=== PATIENT | male | born 1950 | race Caucasian/White ===

== ENCOUNTER 2018-01-15 11:29 | Outpatient (CLI) | payer MEDICARE, BC ==
[2018-01-15 13:46] LABS: #Eosinphils 0.2 thou/uL (0.0-0.7); #Lymphocytes 2.5 thou/uL (1.20-3.40); #Monocytes 0.9 thou/uL (0.11-0.59); #Neutrophils 5.6 thou/uL (1.40-6.50); %Basophils 0.4 % (0.0-1.0); %Eosinophils 2.3 % (0.0-10.0); %Lymphocytes 26.6 % (21.0-51.0); %Neutrophils 60.7 % (42.0-75.0); Hemoglobin 15.3 g/dL (14.0-18.0); Mean Corpuscular HGB CONC 35.3 g/dL (32.0-36.0); Mean Corpuscular Hemoglobin 33.7 pg (27.0-31.0); Mean Corpuscular Volume 95.4 fL (78.0-98.0); Mean Platelet Volume 7.9 fL (7.4-10.4); Platelet Count 188 thou/uL (130-400); RBC Distribution Width 12.1 % (11.5-14.5); Red Blood Cell (RBC) Count 4.55 mill/uL (4.70-6.10); White Blood Cell (WBC) Count 9.2 thou/uL (4.8-10.8)
[2018-01-15 13:54] LABS: PTT 25.8 SEC (22.9-36.1); Prothrombin Time 13.2 SEC (12.0-14.7)
[2018-01-15 14:01] LABS: Anion Gap 14 mmol/L (10-20); BUN (Urea Nitrogen) 21 mg/dL (8.4-25.7); Calc. Creatinine Clearance 0 mL/min (70-130); Calcium 10.5 mg/dL (7.8-10.44); Carbon Dioxide 25 mmol/L (23-31); Chloride 103 mmol/L (98-107); Estimated GFR-MDRD 78; Glucose 254 mg/dL (80-115); Potassium 4.3 mmol/L (3.5-5.1); Sodium 138 mmol/L (136-145)
== END 2018-01-15 11:30 | disposition home or self-care (01) ==
LOC: LABBT 11:29
PROVIDERS: ATTEND Orthopaedic Surgery
DX: Z01.818 Encounter for other preprocedural examination (principal); M16.0 Bilateral primary osteoarthritis of hip
CPT/HCPCS: 80048; 85025; 85610; 85730; 87081; 93005; 93010

== ENCOUNTER 2018-01-15 12:30 | Inpatient (IN) | payer MEDICARE, BC ==
--- NOTE | 2018-01-31 18:41 | HP ---
DATE OF ADMISSION: 02/04/2018 HISTORY OF PRESENT ILLNESS: The patient is a 67-year-old male with a greater than 1 year history of progressive degenerative arthritis of the right hip, unresponsive to conservative treatment. There has been no injury. He has had progressive pain, which is significantly limiting his lifestyle, including walking, getting dressed, and sleeping. He currently states his life is not worth living the way it is now. PAST MEDICAL HISTORY: The patient has multiple other medical problems including diabetes, coronary artery disease, status post CABG, hypertension, hyperlipidemia, asthma. CURRENT MEDICATIONS: Includes lisinopril, Lipitor, Plavix, which he stopped 1 week preoperatively, aspirin 81 mg, atenolol, Symbicort, Ventolin, multivitamins , Tylenol. ALLERGIES: He is allergic to BACTRIM. On preoperative testing, he was found to have positive MRSA screen and has been treated with Hibiclens showers and baths and Bactroban nasal ointment. FAMILY HISTORY: Otherwise, unremarkable. SOCIAL HISTORY: Otherwise, unremarkable. REVIEW OF SYSTEMS: Otherwise, unremarkable. PHYSICAL EXAMINATION: GENERAL: Reveals an elderly healthy heavyset male. HEENT: Unremarkable. NECK: Supple. CHEST: Clear. HEART: Regular rate and rhythm. ABDOMEN: Soft, nontender. RECTAL/GENITAL: Exams are deferred. EXTREMITIES: Pertinent findings to the right hip. There is tenderness anteriorly, posteriorly and over the greater trochanter. There is a right antalgic gait. There is decreased range of motion of the right hip and groin pain with internal rotation. Leg lengths appear to be equal. Neurovascular exam is intact. I cannot palpate his distal pulses. There is good capillary refill. X-RAY FINDINGS: X-rays reveal severe DJD of both hips, right slightly greater than left. IMPRESSION: 1. Degenerative joint disease of both hips, right symptomatic more than left. 2. Diabetes. 3. Atherosclerotic cardiovascular disease status post coronary artery bypass graft. 4. History of hypertension. 5. Positive methicillin-resistant Staphylococcus aureus screen. PLAN: Right total hip replacement. 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 Elio Mccurdy. The nature of the surgery, length of recovery, and potential complications such as infection, loss of motion, incomplete relief, thromboembolic phenomenon, leg length discrepancy, possible transfusion, and need for revision have been discussed in detail. The patient's other medical conditions put him at high risk for potential complications, but he states at this point in time he will do anything to get rid of his pain.He states his life is not worth living in his present state of pain. JOSHUA
[2018-02-04] MEDS ORDERED: CEFAZOLIN 3 GM in Sodium Chloride 0.9% 100 ML IVPB SCH (06:00)
[2018-02-04] MEDS ORDERED: Sodium Chloride 0.9% 100 ML ONE (06:10)
[2018-02-04] MEDS ORDERED: Fentanyl 100 MCG/2 ML VIAL ONE ×6 (06:33→10:32)
[2018-02-04] MEDS ORDERED: Midazolam HCl 2 mg/2 ml Vial ONE (06:33)
[2018-02-04] MEDS ORDERED: Naloxone HCl 0.4 mg/ml Vial IV PRN ×2 (07:09→09:50)
[2018-02-04] MEDS ORDERED: Ondansetron HCl/PF 4 MG/2 ML Vial IVP PRN ×4 (07:09→12:19)
[2018-02-04] MEDS ORDERED: fentaNYL Citrate/PF 2,000 MCG in Sodium Chloride 0.9% 60 ML IV PRN ×2 (07:09→09:50)
[2018-02-04] MEDS ORDERED: Zolpidem Tartrate 5 MG TAB PO PRN ×3 (07:09→12:19)
[2018-02-04] MEDS ORDERED: diphenhydrAMINE 50 MG/ML VIAL IM/IV PRN (07:09)
[2018-02-04] MEDS ORDERED: Ketorolac Tromethamine 30 MG/ML VIAL IVP PRN (07:09)
[2018-02-04] MEDS ORDERED: diphenhydrAMINE 25 MG CAP PO PRN ×3 (07:09→12:19)
[2018-02-04] MEDS ORDERED: Promethazine HCl 25 MG/ML VIAL IM PRN ×3 (07:09→09:50)
[2018-02-04] MEDS ORDERED: ADMIXTURE FEE CHEMO IVPB SCH (07:15)
[2018-02-04] MEDS ORDERED: CEFAZOLIN IVPB SCH (07:15)
[2018-02-04] MEDS ORDERED: SODIUM CHLORIDE 0.9% IVPB SCH (07:15)
[2018-02-04 07:22] LABS: Bilirubin Negative (Negative); Blood, Urine Negative (Negative); Clarity CLEAR (Clear); Glucose, Urine (Dipstick) Negative (Negative); Leukocyte Negative (Negative); Nitrite Negative (Negative); Protein, Urine (Dipstick) Negative (Neg-Trace); Specific Gravity, Urine 1.013 (1.002-1.036); Urobilinogen 0.2 mg/dL (0.2-1.0); pH, Urine 5.5 (5.0-9.0)
[2018-02-04 07:24] LABS: Bacteria/HPF None Seen HPF (None Seen); Hyaline Casts/LPF 0-3 HYALINE CAST LPF (0-3 Hyaline); RBC/HPF 0-3 HPF (0-3); Squamous Epithelial None Seen HPF (0-3); WBC/HPF None Seen HPF (0-3)
[2018-02-04] MEDS ORDERED: Sodium Chloride 0.9% 10 ML ONE (08:46)
[2018-02-04] MEDS ORDERED: Ondansetron HCl/PF 4 MG/2 ML Vial ONE (09:16)
[2018-02-04] MEDS ORDERED: Ketorolac Tromethamine 30 MG/ML VIAL ONE (09:16)
[2018-02-04] MEDS ORDERED: Glycopyrrolate 0.2 MG/ML 5 ML SYRINGE ONE (09:16)
[2018-02-04] MEDS ORDERED: Succinylcholine Chloride 20 MG/ML 10 ml SYRINGE FS ONE (09:16)
[2018-02-04] MEDS ORDERED: PHENYLEPHRINE-NS 100 MCG/ML 10 ML SYRINGE ONE (09:16)
[2018-02-04] MEDS ORDERED: Lidocaine 1% PF 5 ML VIAL ONE (09:16)
[2018-02-04] MEDS ORDERED: PROPOFOL 200 MG/20 ML VIAL ONE (09:16)
[2018-02-04] MEDS ORDERED: Dexamethasone 20 MG/5 ML VIAL ONE (09:16)
[2018-02-04] MEDS ORDERED: Tranexamic Acid 1,000 MG in Sodium Chloride 0.9% 100 ML IVPB SCH ×2 (09:45→12:19)
[2018-02-04] MEDS ORDERED: Promethazine HCl 25 MG/ML VIAL SLOW IVP PRN ×2 (09:49→12:19)
[2018-02-04] MEDS ORDERED: diphenhydrAMINE 50 MG/ML VIAL IM PRN (09:50)
[2018-02-04] MEDS ORDERED: diphenhydrAMINE 50 MG/ML VIAL IVP PRN (09:50)
--- NOTE | 2018-02-04 09:50 | OP ---
DATE OF PROCEDURE: 02/04/2018 PREOPERATIVE DIAGNOSIS: End-stage bicompartmental osteoarthritis, right hip. POSTOPERATIVE DIAGNOSIS: End-stage bicompartmental osteoarthritis, right hip. OPERATIVE PROCEDURE: Press-Fit right total hip arthroplasty. SURGEON: Kulwant Harden M.D. LEAD CARPENTER: Kevin Chawla PA-C. ANESTHESIA: General via endotracheal. COMPONENTS USED: [facility] size 5.5 Accolade Press-Fit hip stem with a Trident PSL 58 mm c luster acetabular Press Fit shell, a neutral offset metallic femoral head, 40 mm with a 0 degree poly ethylene fixed bearing insert. ESTIMATED BLOOD LOSS: 400 mL. URINE OUTPUT: None. INPUT: 1500 mL of crystalloid. DRAINS: None. SPECIMENS: None. COMPLICATIONS: None. COUNTS: Correct. INDICATIONS FOR SURGERY: Tadeo is a 67-year-old white male who has had progressive right hip, groi n and thigh pain amplified with standing and walking for the last 10-12 years. He has failed conserv ative management and elected to proceed with total hip arthroplasty as definitive treatment of his pa in. PROCEDURE IN DETAIL: After informed consent was obtained in the preoperative holding area, the patie nt was taken to the operative suite where general anesthesia was induced. The patient was then posit ioned in the lateral decubitus position. The hip was then prepped and draped in usual sterile fashio n. The patient received preoperative antibiotics. Prior to incision, time-out was called and all me mbers of the surgical team agreed upon site, surgeon, and patient. After this, a longitudinal incisi on was made directly over the trochanter, noted by palpation extending 2 fingerbreadths above and bel ow the trochanter. The deeper subcutaneous layer was undermined with Bovie electrocautery. The ilio tibial band was encountered and incised sharply and the plane below this was developed bluntly. [facility] was placed to hold this opened. The lateral aspect of the trochanter and the abduct or muscles were encountered and then reflected anteriorly off the trochanter using Bovie electrocaute ry. Once this was completed, the anterior capsule was then encountered and identified and copious ca psulotomy was carried out, exposing the femoral neck and head. Dislocation maneuver was then performe d and an in situ provisional neck cut was then made using the oscillating saw. Attention was then tu rned to acetabular preparation and sequential reaming was carried out up to the appropriate diameter and a trial was then malleted into place with good firm resistance and no pullout. The permanent viri tabular shell was then malleted squarely into place, as was the appropriate liner. Once completed, t he wound was copiously irrigated and attention was then turned to femoral preparation. Flexion and ex ternal rotation was performed of the exposed thigh and femoral elevators were then placed at the prox imal aspect of the wound. Canal finder was used to establish the length of the canal and sequential reaming was carried out, followed by broaching. Once the appropriate stability was established with the trial broaches with both flexion, extension and rotational stability, we did trial with neutral a nd 2 mm offset incremental necks. Once the appropriate size was decided upon, with good stability no ling with flexion, extension, internal and external rotation and shuck being negative, we removed the femoral trial broach and malletted into place the permanent prosthesis with good firm fit, which was also stable to rotation. Again, the hip felt very stable to flexion, extension, internal and externa l rotation. Leg lengths appeared near anatomic clinically and we were quite happy with prosthesis pl acement. Copious irrigation was then carried out through the entirety of the wound. Primary closure of the abductors was accomplished with interrupted #2 Vicryl [id number] stitches and the IT ban d was then closed with interrupted #2 Vicryl, oversewn with a #2 running barbed Quill stitch. Subcut aneous fascia was closed with running barbed Quill stitch and a subcuticular Monocryl barbed Quill st itch was used for skin closure and augmented with skin cement. A sterile dressing was applied. The p rocedure was terminated without any complication. All counts were correct. The patient was awakened in the operative suite and taken to the recovery room in stable condition.
[2018-02-04] MEDS ORDERED: Communication Order-Pharmacy FS SCH (10:00)
--- NOTE | 2018-02-04 10:54 | RAD ---
TWP VIEWS RIGHT HIP: Date: 02-04-18 History: Post op total hip replacement. FINDINGS: There are post-surgical changes related to right total hip prosthesis. No fracture or dislocation is seen. Subcutaneous emphysema is seen about the hip. IMPRESSION: Post-surgical changes related to recent right total hip replacement. POS: [facility]
[2018-02-04] MEDS ORDERED: Promethazine HCl 25 MG/ML VIAL ONE (11:09)
[2018-02-04] MEDS: Sodium Chloride 0.9% 1,000 ML IV SCH ×2 (12:02→21:05)
[2018-02-04] MEDS ORDERED: Acetaminophen 325 MG TAB PO PRN (12:19)
[2018-02-04] MEDS ORDERED: Cetirizine HCl 10 MG TAB PO SCH (12:19)
[2018-02-04] MEDS ORDERED: traMADol HCl 50 MG TAB PO PRN (12:19)
[2018-02-04] MEDS ORDERED: PROVENTIL INHALER 6.7 G (200 INHALATIONS) INH PRN (12:19)
[2018-02-04] MEDS ORDERED: Fentanyl 100 MCG/2 ML VIAL SLOW IVP PRN ×2 (12:19)
[2018-02-04] MEDS ORDERED: CEFAZOLIN/Water 2 GM/20 ML SYRINGE SLOW IVP SCH (12:19)
[2018-02-04] MEDS ORDERED: HYDROcodone/Acetaminophen 10/325 mg Tablet PO PRN ×2 (12:19)
[2018-02-04] MEDS ORDERED: UBIDECARENONE PO SCH (12:19)
[2018-02-04] MEDS ORDERED: Aspirin 325 MG TAB PO SCH ×2 (12:19→13:15)
[2018-02-04 13:00] VITALS: BMI 42.0
[2018-02-04] MEDS ORDERED: Lisinopril 10 MG TAB PO SCH (13:15)
[2018-02-04] MEDS ORDERED: Ferrous Gluconate 324 MG TAB PO SCH (13:15)
[2018-02-04] MEDS ORDERED: Multivitamin W/ Minerals 1 TAB PO SCH (13:15)
[2018-02-04] MEDS ORDERED: Senokot S 8.6-50 MG TAB PO SCH (13:15)
[2018-02-04] MEDS ORDERED: Loratadine 10 MG TAB PO SCH (13:15)
[2018-02-04] MEDS ORDERED: Ubidecarenone 50 MG CAP PO SCH (13:30)
[2018-02-04] MEDS ORDERED: HumaLOG 300 UNITS/3 ML VIAL SC PRN (13:54)
[2018-02-04] MEDS ORDERED: Dextrose 5% in Water 1,000 ML IV PRN (13:54)
[2018-02-04] MEDS ORDERED: Dextrose 50% Abboject 50 ML SYRINGE SLOW IVP PRN (13:54)
[2018-02-04] MEDS ORDERED: hydrALAZINE 20 MG/ML VIAL SLOW IVP PRN (13:55)
[2018-02-04] MEDS: Ketorolac Tromethamine 30 MG/ML VIAL IVP SCH ×2 (14:47→21:12)
[2018-02-04] MEDS: CEFAZOLIN IVPB SCH (15:01)
[2018-02-04] MEDS: SODIUM CHLORIDE 0.9% IVPB SCH (15:01)
[2018-02-04] MEDS: ADMIXTURE FEE CHEMO IVPB SCH (15:01)
[2018-02-04] MEDS: Fish Oil 1,000 MG CAP PO SCH ×2 (15:02→21:09)
[2018-02-04] MEDS: Insulin NPH/Reg Insulin Hm 300 UNITS/3 ML VIAL SC SCH ×2 (15:19→22:00)
--- NOTE | 2018-02-04 17:21 | PDOC.PN ---
- Subjective Encounter Start Date: 02/04/18 Encounter Start Time: 17:20 Pt seen for management of medical comorbidities including diabetes mellitus. Denies chest pain, shortness of breath, fevers or chills. - Objective MAR Reviewed: Yes Vital Signs & Weight: Vital Signs (12 hours) Temp Pulse Resp BP Pulse Ox 02/04/18 12:30 97.8 F 71 18 104/64 98 02/04/18 08:00 97.8 F 71 18 Weight Weight 345 lb Additional Labs: Accuchecks 02/04/18 15:16 POC Glucose 297 H Labs reviewed by me Phys Exam - Physical Examination Constitutional: NAD HEENT: moist MMs Neck: supple Respiratory: clear to auscultation bilateral Cardiovascular: RRR Gastrointestinal: soft s/p R hip surgery Neurological: moves all 4 limbs Psychiatric: normal affect Dx/Plan (1) DM2 (diabetes mellitus, type 2) Status: Chronic Comment: start accuchecks, insulin sliding scale (2) HTN (hypertension) Code(s): I10 - ESSENTIAL (PRIMARY) HYPERTENSION Status: Chronic Comment: controlled. Add PRN IV hydralazine for blood pressure spikes. (3) CAD (coronary artery disease) Code(s): I25.10 - ATHSCL HEART DISEASE OF [place] CORONARY ARTERY W/O ANG PCTRS Status: Chronic Comment: stable (4) Dyslipidemia Code(s): E78.5 - HYPERLIPIDEMIA, UNSPECIFIED Status: Chronic Comment: continue statin - Plan * . Review of Systems - Medications/Allergies Allergies/Adverse Reactions: Allergies Allergy/AdvReac Type Severity Reaction Status Date / Time Sulfa (Sulfonamide Allergy "been told Verified 06/01/16 09:13 Antibiotics) that since i was a child" Medications: Current Medications Acetaminophen (Tylenol) 650 mg PO Q4H PRN PRN Reason: REIS/ T > 101F; Mild Pain (1-3) Albuterol Sulfate (Proventil Hfa) 2 puff INH PRN PRN PRN Reason: Dyspnea/Wheezing/SOB Aspirin (Aspirin) 325 mg PO BID [facility] Atorvastatin Calcium (Lipitor) 80 mg PO HS [facility] Cholecalciferol (Vitamin D3) 10,000 units PO DAILY [facility] Coenzyme Q10 (Coenzyme Q10) 100 mg PO DAILY [facility] Dextrose/Water (Dextrose 50%) 25 gm SLOW IVP PRN PRN PRN Reason: Hypoglycemia Diphenhydramine HCl (Benadryl) 25 mg IVP Q3H PRN PRN Reason: Itching Diphenhydramine HCl (Benadryl) 25 mg IM Q3H PRN PRN Reason: Itching Diphenhydramine HCl (Benadryl) 25 mg PO Q6H PRN PRN Reason: Itching Ferrous Gluconate (Fergon) 324 mg PO BID [facility] Fish Oil (Fish Oil) 1,000 mg PO TID [facility] Last Admin: 02/04/18 15:02 Dose: Not Given Glucagon (Glucagon) 1 mg IM PRN PRN PRN Reason: Hypoglycemia Hydralazine HCl (Apresoline) 10 mg SLOW IVP Q6H PRN PRN Reason: SBP Greater Than 170 Fentanyl Citrate 2,000 mcg/ (Sodium Chloride) 100 mls @ 0 mls/hr IV INF PRN; As Directed PRN Reason: Pain Sodium Chloride (Normal Saline 0.9%) 1,000 mls @ 100 mls/hr IV .Q10H [facility] Last Admin: 02/04/18 12:02 Dose: Not Given Vancomycin HCl 2 gm/ Sodium (Chloride) 500 mls @ 250 mls/hr IVPB 2100 [facility] Stop: 02/04/18 22:59 Cefazolin Sodium 3 gm/Miscellaneous Medication 1 units/ Sodium Chloride 100 mls @ 200 mls/hr IVPB Q8H [facility] Stop: 02/04/18 23:29 Last Admin: 02/04/18 15:01 Dose: 100 mls Dextrose/Water (D5w) 1,000 mls @ 0 mls/hr IV .Q0M PRN; As Directed PRN Reason: Hypoglycemia Insulin Human Isoph/Insulin Regular (Humulin 70/30) 0 units SC TID [facility] Last Admin: 02/04/18 15:19 Dose: 66 unit Insulin Human Lispro (Humalog) 0 units SC .MILD SLIDING SCALE PRN PRN Reason: Mild Correctional Scale Iron/Minerals/Multivitamins (Theragran M) 1 tab PO DAILY [facility] Ketorolac Tromethamine (Toradol) 15 mg IVP Q6H PRN PRN Reason: Moderate Pain 4-6 Stop: 02/07/18 07:10 Ketorolac Tromethamine (Toradol) 15 mg IVP Q8HR [facility] Stop: 02/06/18 14:01 Last Admin: 02/04/18 14:47 Dose: 15 mg Lisinopril (Zestril) 5 mg PO QAM [facility] Loratadine (Claritin) 10 mg PO DAILY [facility] Metoprolol Succinate (Toprol Xl) 25 mg PO DAILY [facility] Miscellaneous Information (Communication Order-Pharmacy) 1 each FS ONE [facility] Stop: 02/04/18 22:00 Naloxone HCl (Narcan) 0.2 mg IV Q5MIN PRN PRN Reason: Opiate Reversal Ondansetron HCl (Zofran) 4 mg IVP Q6H PRN PRN Reason: Nausea/Vomiting Promethazine HCl (Phenergan) 12.5 mg SLOW IVP Q4H PRN PRN Reason: Nausea/Vomiting Senna/Docusate Sodium (Senokot S) 2 tab PO BID [facility] Sodium Chloride (Flush - Normal Saline) 10 ml IVF PRN PRN PRN Reason: Saline Flush Zolpidem Tartrate (Ambien) 5 mg PO HSPRN PRN PRN Reason: Insomnia
[2018-02-04] MEDS: Aspirin 325 MG TAB PO SCH (21:10)
[2018-02-04] MEDS: Senokot S 8.6-50 MG TAB PO SCH (21:10)
[2018-02-04] MEDS: Ferrous Gluconate 324 MG TAB PO SCH (21:11)
[2018-02-04] MEDS: Atorvastatin Calcium 40 MG TAB PO SCH (21:11)
[2018-02-05] MEDS: CEFAZOLIN IVPB SCH (00:13)
[2018-02-05] MEDS: SODIUM CHLORIDE 0.9% IVPB SCH (00:13)
[2018-02-05] MEDS: ADMIXTURE FEE CHEMO IVPB SCH (00:13)
[2018-02-05] MEDS ORDERED: fentaNYL Citrate/PF 2,000 MCG in Sodium Chloride 0.9% 60 ML IV PRN (00:50)
[2018-02-05] MEDS ORDERED: Ketorolac Tromethamine 30 MG/ML VIAL IVP PRN (00:53)
[2018-02-05] MEDS: Ketorolac Tromethamine 30 MG/ML VIAL IVP SCH ×3 (05:18→21:06)
[2018-02-05 05:49] LABS: Hemoglobin 12.5 g/dL (14.0-18.0); Mean Corpuscular HGB CONC 34.2 g/dL (32.0-36.0); Mean Corpuscular Volume 96.6 fL (78.0-98.0); Mean Platelet Volume 7.7 fL (7.4-10.4); Platelet Count 166 thou/uL (130-400); RBC Distribution Width 12.3 % (11.5-14.5); Red Blood Cell (RBC) Count 3.79 mill/uL (4.70-6.10); White Blood Cell (WBC) Count 18.3 thou/uL (4.8-10.8)
[2018-02-05] MEDS: Sodium Chloride 0.9% 1,000 ML IV SCH ×2 (07:22→18:10)
[2018-02-05] MEDS: Ubidecarenone 50 MG CAP PO SCH (08:13)
[2018-02-05] MEDS: Aspirin 325 MG TAB PO SCH ×2 (08:13→21:08)
[2018-02-05] MEDS: Fish Oil 1,000 MG CAP PO SCH ×3 (08:13→21:10)
[2018-02-05] MEDS: Senokot S 8.6-50 MG TAB PO SCH ×2 (08:14→21:09)
[2018-02-05] MEDS: Ferrous Gluconate 324 MG TAB PO SCH ×2 (08:15→21:09)
[2018-02-05] MEDS: Lisinopril 10 MG TAB PO SCH (08:15)
[2018-02-05] MEDS: Loratadine 10 MG TAB PO SCH (08:15)
[2018-02-05] MEDS: Insulin NPH/Reg Insulin Hm 300 UNITS/3 ML VIAL SC SCH ×3 (08:19→21:11)
[2018-02-05] MEDS: Multivitamin W/ Minerals 1 TAB PO SCH (08:28)
--- NOTE | 2018-02-05 13:58 | PDOC.PN ---
- Subjective Encounter Start Date: 02/05/18 Encounter Start Time: 09:00 Pt seen for followup re: dm2. Denies chest pain, shortness of breath, fevers or chills. No nausea or vomiting. - Objective MAR Reviewed: Yes Vital Signs & Weight: Vital Signs (12 hours) Temp Pulse Resp BP Pulse Ox 02/05/18 07:09 98.4 F 91 18 02/05/18 03:24 98.4 F 91 18 115/68 94 L Weight Admit Weight 345 lb Weight 345 lb I&O: 02/04/18 02/05/18 02/06/18 06:59 06:59 06:59 Intake Total 2480 Output Total 0 Balance 2480 Result Diagrams: 02/05/18 04:52 Additional Labs: Accuchecks 02/05/18 02/05/18 02/04/18 11:51 06:06 21:36 POC Glucose 208 H 202 H 245 H 02/04/18 02/04/18 15:16 06:27 POC Glucose 297 H 186 H labs reviewed by me Phys Exam - Physical Examination Morbid obesity HEENT: moist MMs Neck: supple Respiratory: clear to auscultation bilateral Cardiovascular: RRR Gastrointestinal: soft s/p R hip surgery Neurological: moves all 4 limbs Psychiatric: normal affect Dx/Plan (1) DM2 (diabetes mellitus, type 2) Status: Chronic Comment: blood sugars high, change to moderate insulin sliding scale (2) HTN (hypertension) Code(s): I10 - ESSENTIAL (PRIMARY) HYPERTENSION Status: Chronic Comment: controlled. (3) CAD (coronary artery disease) Code(s): I25.10 - ATHSCL HEART DISEASE OF [place] CORONARY ARTERY W/O ANG PCTRS Status: Chronic Comment: stable (4) Dyslipidemia Code(s): E78.5 - HYPERLIPIDEMIA, UNSPECIFIED Status: Chronic Comment: on statin - Plan * . Review of Systems - Review of Systems Respiratory: negative: Cough, Shortness of Breath, SOB with Excertion, Pleuritic Pain, Wheezing Cardiovascular: negative: chest pain, palpitations, orthopnea, paroxysmal nocturnal dyspnea, edema, light headedness - Medications/Allergies Allergies/Adverse Reactions: Allergies Allergy/AdvReac Type Severity Reaction Status Date / Time Sulfa (Sulfonamide Allergy "been told Verified 06/01/16 09:13 Antibiotics) that since i was a child" Medications: Current Medications Acetaminophen (Tylenol) 650 mg PO Q4H PRN PRN Reason: REIS/ T > 101F; Mild Pain (1-3) Albuterol Sulfate (Proventil Hfa) 2 puff INH PRN PRN PRN Reason: Dyspnea/Wheezing/SOB Aspirin (Aspirin) 325 mg PO BID [facility] Last Admin: 02/05/18 08:13 Dose: 325 mg Atorvastatin Calcium (Lipitor) 80 mg PO HS [facility] Last Admin: 02/04/18 21:11 Dose: 80 mg Cholecalciferol (Vitamin D3) 10,000 units PO DAILY [facility] Last Admin: 02/05/18 08:14 Dose: 10,000 units Coenzyme Q10 (Coenzyme Q10) 100 mg PO DAILY [facility] Last Admin: 02/05/18 08:13 Dose: 100 mg Dextrose/Water (Dextrose 50%) 25 gm SLOW IVP PRN PRN PRN Reason: Hypoglycemia Diphenhydramine HCl (Benadryl) 25 mg IVP Q3H PRN PRN Reason: Itching Diphenhydramine HCl (Benadryl) 25 mg IM Q3H PRN PRN Reason: Itching Diphenhydramine HCl (Benadryl) 25 mg PO Q6H PRN PRN Reason: Itching Ferrous Gluconate (Fergon) 324 mg PO BID [facility] Last Admin: 02/05/18 08:15 Dose: 324 mg Fish Oil (Fish Oil) 1,000 mg PO TID [facility] Last Admin: 02/05/18 08:13 Dose: 1,000 mg Glucagon (Glucagon) 1 mg IM PRN PRN PRN Reason: Hypoglycemia Hydralazine HCl (Apresoline) 10 mg SLOW IVP Q6H PRN PRN Reason: SBP Greater Than 170 Sodium Chloride (Normal Saline 0.9%) 1,000 mls @ 100 mls/hr IV .Q10H [facility] Last Admin: 02/05/18 07:22 Dose: Not Given Dextrose/Water (D5w) 1,000 mls @ 0 mls/hr IV .Q0M PRN; As Directed PRN Reason: Hypoglycemia Fentanyl Citrate 2,000 mcg/ (Sodium Chloride) 100 mls @ 0 mls/hr IV INF PRN; As Directed PRN Reason: Pain Insulin Human Isoph/Insulin Regular (Humulin 70/30) 0 units SC TID [facility] Last Admin: 02/05/18 08:19 Dose: 66 unit Insulin Human Lispro (Humalog) 0 units SC .MILD SLIDING SCALE PRN PRN Reason: Mild Correctional Scale Iron/Minerals/Multivitamins (Theragran M) 1 tab PO DAILY [facility] Last Admin: 02/05/18 08:28 Dose: 1 tab Ketorolac Tromethamine (Toradol) 15 mg IVP Q6H PRN PRN Reason: Moderate Pain 4-6 Stop: 02/07/18 07:10 Ketorolac Tromethamine (Toradol) 15 mg IVP Q8HR [facility] Stop: 02/06/18 14:01 Last Admin: 02/05/18 05:18 Dose: 15 mg Lisinopril (Zestril) 5 mg PO QAM [facility] Last Admin: 02/05/18 08:15 Dose: 5 mg Loratadine (Claritin) 10 mg PO DAILY [facility] Last Admin: 02/05/18 08:15 Dose: 10 mg Metoprolol Succinate (Toprol Xl) 25 mg PO DAILY [facility] Last Admin: 02/05/18 08:15 Dose: 25 mg Naloxone HCl (Narcan) 0.2 mg IV Q5MIN PRN PRN Reason: Opiate Reversal Ondansetron HCl (Zofran) 4 mg IVP Q6H PRN PRN Reason: Nausea/Vomiting Promethazine HCl (Phenergan) 12.5 mg SLOW IVP Q4H PRN PRN Reason: Nausea/Vomiting Senna/Docusate Sodium (Senokot S) 2 tab PO BID [facility] Last Admin: 02/05/18 08:14 Dose: 2 tab Sodium Chloride (Flush - Normal Saline) 10 ml IVF PRN PRN PRN Reason: Saline Flush Zolpidem Tartrate (Ambien) 5 mg PO HSPRN PRN PRN Reason: Insomnia
[2018-02-05] MEDS ORDERED: HumaLOG 300 UNITS/3 ML VIAL SC PRN (14:02)
[2018-02-05] MEDS: HumaLOG 300 UNITS/3 ML VIAL SC PRN (18:15)
[2018-02-05] MEDS: Atorvastatin Calcium 40 MG TAB PO SCH (21:09)
[2018-02-06] MEDS: Sodium Chloride 0.9% 1,000 ML IV SCH ×2 (05:32→15:32)
[2018-02-06] MEDS: Ketorolac Tromethamine 30 MG/ML VIAL IVP SCH ×2 (06:10→14:43)
[2018-02-06] MEDS: Lisinopril 10 MG TAB PO SCH (08:29)
[2018-02-06] MEDS: Multivitamin W/ Minerals 1 TAB PO SCH (08:29)
[2018-02-06] MEDS: Fish Oil 1,000 MG CAP PO SCH ×2 (08:29→14:43)
[2018-02-06] MEDS: Ferrous Gluconate 324 MG TAB PO SCH (08:29)
[2018-02-06] MEDS: Ubidecarenone 50 MG CAP PO SCH (08:29)
[2018-02-06] MEDS: Aspirin 325 MG TAB PO SCH (08:29)
[2018-02-06] MEDS: Loratadine 10 MG TAB PO SCH (08:29)
[2018-02-06] MEDS: Senokot S 8.6-50 MG TAB PO SCH (08:30)
[2018-02-06] MEDS: Insulin NPH/Reg Insulin Hm 300 UNITS/3 ML VIAL SC SCH ×2 (10:30→14:43)
[2018-02-06] MEDS: HumaLOG 300 UNITS/3 ML VIAL SC PRN (11:44)
--- NOTE | 2018-02-06 15:49 | PDOC.PN ---
- Subjective Encounter Start Date: 02/06/18 Encounter Start Time: 10:00 Pt seen for followup re: diabetes mellitus 2. Denies chest pain, shortness of breath, fevers, chills, nausea or vomiting. - Objective Vital Signs & Weight: Vital Signs (12 hours) Temp Pulse Resp BP BP Pulse Ox 02/06/18 11:33 98.2 F 92 18 111/67 91 L 02/06/18 09:34 97.8 F 92 16 91 L 02/06/18 08:29 97.8 F 92 16 121/67 121/67 91 L 02/06/18 04:00 97.4 F L 90 16 120/69 96 Weight Admit Weight 345 lb Weight 345 lb I&O: 02/05/18 02/06/18 02/07/18 06:59 06:59 06:59 Intake Total 2480 1340 Output Total 0 Balance 2480 1340 Result Diagrams: 02/05/18 04:52 Additional Labs: Accuchecks 02/06/18 02/06/18 02/05/18 11:07 05:35 20:47 POC Glucose 160 H 135 H 203 H 02/05/18 18:06 POC Glucose 214 H Phys Exam - Physical Examination Morbid obesity HEENT: moist MMs Neck: supple Respiratory: clear to auscultation bilateral Cardiovascular: RRR Gastrointestinal: soft s/p R hip surgery Neurological: moves all 4 limbs Psychiatric: normal affect Dx/Plan (1) DM2 (diabetes mellitus, type 2) Status: Chronic Comment: Pt is on moderate insulin sliding scale, sugars improved (2) HTN (hypertension) Code(s): I10 - ESSENTIAL (PRIMARY) HYPERTENSION Status: Chronic Comment: controlled. (3) CAD (coronary artery disease) Code(s): I25.10 - ATHSCL HEART DISEASE OF [place] CORONARY ARTERY W/O ANG PCTRS Status: Chronic Comment: stable (4) Dyslipidemia Code(s): E78.5 - HYPERLIPIDEMIA, UNSPECIFIED Status: Chronic Comment: continue statin - Plan * . Review of Systems - Review of Systems Cardiovascular: negative: chest pain, palpitations, orthopnea, paroxysmal nocturnal dyspnea, edema, light headedness - Medications/Allergies Allergies/Adverse Reactions: Allergies Allergy/AdvReac Type Severity Reaction Status Date / Time Sulfa (Sulfonamide Allergy "been told Verified 06/01/16 09:13 Antibiotics) that since i was a child" Medications: Current Medications Acetaminophen (Tylenol) 650 mg PO Q4H PRN PRN Reason: REIS/ T > 101F; Mild Pain (1-3) Last Admin: 02/06/18 00:24 Dose: 650 mg Albuterol Sulfate (Proventil Hfa) 2 puff INH PRN PRN PRN Reason: Dyspnea/Wheezing/SOB Aspirin (Aspirin) 325 mg PO BID [facility] Last Admin: 02/06/18 08:29 Dose: 325 mg Atorvastatin Calcium (Lipitor) 80 mg PO HS [facility] Last Admin: 02/05/18 21:09 Dose: 80 mg Cholecalciferol (Vitamin D3) 10,000 units PO DAILY [facility] Last Admin: 02/06/18 08:36 Dose: 10,000 units Coenzyme Q10 (Coenzyme Q10) 100 mg PO DAILY [facility] Last Admin: 02/06/18 08:29 Dose: 100 mg Dextrose/Water (Dextrose 50%) 25 gm SLOW IVP PRN PRN PRN Reason: Hypoglycemia Diphenhydramine HCl (Benadryl) 25 mg IVP Q3H PRN PRN Reason: Itching Diphenhydramine HCl (Benadryl) 25 mg IM Q3H PRN PRN Reason: Itching Diphenhydramine HCl (Benadryl) 25 mg PO Q6H PRN PRN Reason: Itching Ferrous Gluconate (Fergon) 324 mg PO BID [facility] Last Admin: 02/06/18 08:29 Dose: 324 mg Fish Oil (Fish Oil) 1,000 mg PO TID [facility] Last Admin: 02/06/18 14:43 Dose: 1,000 mg Glucagon (Glucagon) 1 mg IM PRN PRN PRN Reason: Hypoglycemia Hydralazine HCl (Apresoline) 10 mg SLOW IVP Q6H PRN PRN Reason: SBP Greater Than 170 Sodium Chloride (Normal Saline 0.9%) 1,000 mls @ 100 mls/hr IV .Q10H [facility] Last Admin: 02/06/18 15:32 Dose: Not Given Dextrose/Water (D5w) 1,000 mls @ 0 mls/hr IV .Q0M PRN PRN Reason: Hypoglycemia Fentanyl Citrate 2,000 mcg/ (Sodium Chloride) 100 mls @ 0 mls/hr IV INF PRN PRN Reason: Pain Insulin Human Isoph/Insulin Regular (Humulin 70/30) 0 units SC TID [facility] Last Admin: 02/06/18 14:43 Dose: 66 unit Insulin Human Lispro (Humalog) 0 units SC .MODERATE SLIDING SC PRN PRN Reason: Moderate Correctional Scale Last Admin: 02/06/18 11:44 Dose: 2 unit Insulin Human Lispro (Humalog) 0 units SC .BEDTIME SLIDING SC PRN PRN Reason: Bedtime Correctional Scale Iron/Minerals/Multivitamins (Theragran M) 1 tab PO DAILY [facility] Last Admin: 02/06/18 08:29 Dose: 1 tab Ketorolac Tromethamine (Toradol) 15 mg IVP Q6H PRN PRN Reason: Moderate Pain 4-6 Stop: 02/07/18 07:10 Lisinopril (Zestril) 5 mg PO QAM [facility] Last Admin: 02/06/18 08:29 Dose: 5 mg Loratadine (Claritin) 10 mg PO DAILY [facility] Last Admin: 02/06/18 08:29 Dose: 10 mg Metoprolol Succinate (Toprol Xl) 25 mg PO DAILY [facility] Last Admin: 02/06/18 08:29 Dose: 25 mg Naloxone HCl (Narcan) 0.2 mg IV Q5MIN PRN PRN Reason: Opiate Reversal Ondansetron HCl (Zofran) 4 mg IVP Q6H PRN PRN Reason: Nausea/Vomiting Promethazine HCl (Phenergan) 12.5 mg SLOW IVP Q4H PRN PRN Reason: Nausea/Vomiting Senna/Docusate Sodium (Senokot S) 2 tab PO BID [facility] Last Admin: 02/06/18 08:30 Dose: 2 tab Sodium Chloride (Flush - Normal Saline) 10 ml IVF PRN PRN PRN Reason: Saline Flush Zolpidem Tartrate (Ambien) 5 mg PO HSPRN PRN PRN Reason: Insomnia
[2018-02-06 16:07] VITALS: BP 112/66; TEMP 97.8
[2018-02-06] MEDS ORDERED: HYDROcodone/Acetaminophen 10/325 mg Tablet PO PRN ×2 (16:07)
[2018-02-06] MEDS ORDERED: traMADol HCl 50 MG TAB PO PRN ×2 (16:08)
[2018-02-06] MEDS ORDERED: Fentanyl 100 MCG/2 ML VIAL SLOW IVP PRN (16:10)
== END 2018-02-06 19:07 | DRG 470 ==
LOC: SJJU 02-04 05:31
PROVIDERS: ADMIT Orthopaedic Surgery; ATTEND Orthopaedic Surgery
PROC: 0SR90JA Replacement of Right Hip Joint with Synthetic Substitute, Uncemented, Open Approach (ICD-10-PCS; principal; 2018-02-04)
DX: M16.0 Bilateral primary osteoarthritis of hip (principal); Z68.41 Body mass index [BMI] 40.0-44.9, adult; E11.9 Type 2 diabetes mellitus without complications; I10 Essential (primary) hypertension; I25.10 Atherosclerotic heart disease of native coronary artery without angina pectoris; Z95.1 Presence of aortocoronary bypass graft; E78.5 Hyperlipidemia, unspecified; Z88.2 Allergy status to sulfonamides; E66.01 Morbid (severe) obesity due to excess calories
CPT/HCPCS: 36415; 36416; 81001; 85027; 86850; 86900; 86901; A4216; C1776; G8978-GP-CL; G8979-GP-CJ; G8987-GO-CL; G8988-GO-CJ; J0690; J1100; J1885; J2001; J2250; J2405; J2550; J2704; J3010; J3370; J7050